=== PATIENT | female | born 1995 | race Caucasian/White ===

== ENCOUNTER 2017-03-08 21:01 | Emergency (ER) | payer OTHER ==
[~2017-03-08] VITALS: Ht 167.6 cm; Wt 98.0 kg
[2017-03-08 22:20] LABS: BASOPHIL % 1.1 % (0-2); PLATELET COUNT 378 x10^3mcL (130-400); RED CELL DISTRIBUTION WIDTH 13.3 % (11.5-14.5)
[2017-03-08 22:35] LABS: CALCIUM 9.7 mg/dL (8.5-10.1); CHLORIDE SERUM 103 mmol/L (98-107); CREATININE SERUM 0.8 mg/dL (0.6-1.0); GFR1 > 60 mL/min; GLUCOSE SERUM 108 mg/dL (74-106); POTASSIUM SERUM 3.7 mmol/L (3.5-5.1); SODIUM SERUM 139 mmol/L (136-145)
[2017-03-08 22:40] LABS: ALBUMIN 3.7 g/dL (3.4-5.0); ALKALINE PHOSPHATASE 80 U/L (46-116); ALT/SGPT 140 U/L (14-59); AST/SGOT 87 U/L (15-37); BILIRUBIN TOTAL 0.37 mg/dL (0.20-1.00)
[2017-03-09 00:02] VITALS: BP 115/65
== END 2017-03-09 00:02 | disposition home or self-care (01) ==
LOC: ED 21:01
PROVIDERS: Emergency Medicine
DX: J40 Bronchitis, not specified as acute or chronic (principal); J06.9 Acute upper respiratory infection, unspecified
CPT/HCPCS: 36600; 83880; 85378; J1100; J1885

== ENCOUNTER 2017-03-12 20:40 | Emergency (ER) | payer OTHER ==
[2017-03-12 22:40] VITALS: BP 136/86
== END 2017-03-12 22:40 | disposition home or self-care (01) ==
LOC: ED 20:40
DX: R06.02 Shortness of breath (principal)
CPT/HCPCS: 87804

== ENCOUNTER 2017-10-04 17:50 | Emergency (ER) | payer OTHER ==
[~2017-10-04] VITALS: Ht 167.6 cm; Wt 111.6 kg
[2017-10-04 18:03] VITALS: Ht 167.6 cm; Wt 111.6 kg
[2017-10-04 18:36] LABS: BASOPHIL % 0.3 % (0-2); PLATELET COUNT 384 x10^3mcL (130-400); RED CELL DISTRIBUTION WIDTH 13.3 % (11.5-14.5)
[2017-10-04 18:39] LABS: CALCIUM 9.7 mg/dL (8.5-10.1); CARBON DIOXIDE 30.6 mmol/L (21-32); CHLORIDE SERUM 105 mmol/L (98-107); CREATININE SERUM 0.8 mg/dL (0.6-1.0); GFR1 > 60 mL/min; GLUCOSE SERUM 104 mg/dL (74-106); POTASSIUM SERUM 3.7 mmol/L (3.5-5.1); SODIUM SERUM 145 mmol/L (136-145)
[2017-10-04 19:25] VITALS: BP 132/82
== END 2017-10-04 19:25 | disposition home or self-care (01) ==
LOC: ED 17:50
PROVIDERS: Emergency Medicine
DX: R07.89 Other chest pain (principal)
CPT/HCPCS: 36415; 85378; Q0092

== ENCOUNTER 2018-03-05 01:26 | Emergency (ER) | payer OTHER ==
[~2018-03-05] VITALS: Ht 167.6 cm; Wt 107.5 kg
[2018-03-05 01:32] VITALS: Ht 167.6 cm; Wt 107.5 kg
[2018-03-05 03:01] LABS: BASOPHIL % 0.5 % (0-2); PLATELET COUNT 380 x10^3mcL (130-400); RED CELL DISTRIBUTION WIDTH 12.9 % (11.5-14.5)
[2018-03-05 03:11] LABS: CARBON DIOXIDE 30.9 mmol/L (21-32); CHLORIDE SERUM 105 mmol/L (98-107); CREATININE SERUM 0.8 mg/dL (0.6-1.0); GFR1 > 60 mL/min; GLUCOSE SERUM 105 mg/dL (74-106); POTASSIUM SERUM 4.1 mmol/L (3.5-5.1); SODIUM SERUM 141 mmol/L (136-145)
[2018-03-05 03:14] LABS: ALBUMIN 3.8 g/dL (3.4-5.0); ALKALINE PHOSPHATASE 82 U/L (46-116); ALT/SGPT 72 U/L (14-59); AST/SGOT 29 U/L (15-37); BILIRUBIN TOTAL 0.34 mg/dL (0.20-1.00); LIPASE 117 IU/L (73-393)
[2018-03-05 03:16] LABS: TOTAL PROTEIN, SERUM 8.8 g/dL (6.4-8.2)
[2018-03-05 05:20] VITALS: BP 138/79
== END 2018-03-05 05:20 | disposition home or self-care (01) ==
LOC: ED 01:26
PROVIDERS: Emergency Medicine
DX: K80.20 Calculus of gallbladder without cholecystitis without obstruction (principal)
CPT/HCPCS: 36415; Q0092

== ENCOUNTER 2018-03-27 18:51 | Emergency (ER) | payer OTHER ==
[~2018-03-27] VITALS: Ht 167.6 cm; Wt 102.1 kg
[2018-03-27 18:55] VITALS: Ht 167.6 cm; Wt 102.1 kg
[2018-03-27 19:50] LABS: BASOPHIL % 0.2 % (0-2); PLATELET COUNT 348 x10^3mcL (130-400); RED CELL DISTRIBUTION WIDTH 13.2 % (11.5-14.5)
[2018-03-27 19:56] LABS: CALCIUM 9.2 mg/dL (8.5-10.1); CARBON DIOXIDE 30.5 mmol/L (21-32); CHLORIDE SERUM 104 mmol/L (98-107); CREATININE SERUM 0.7 mg/dL (0.6-1.0); GFR1 > 60 mL/min; GLUCOSE SERUM 99 mg/dL (74-106); POTASSIUM SERUM 3.5 mmol/L (3.5-5.1); SODIUM SERUM 139 mmol/L (136-145)
[2018-03-27 20:05] LABS: ALKALINE PHOSPHATASE 93 U/L (46-116); ALT/SGPT 96 U/L (14-59); AST/SGOT 52 U/L (15-37); BILIRUBIN TOTAL 0.52 mg/dL (0.20-1.00); LIPASE 117 IU/L (73-393)
[2018-03-27 20:08] LABS: TOTAL PROTEIN, SERUM 8.5 g/dL (6.4-8.2)
[2018-03-27 20:42] VITALS: BP 119/67
== END 2018-03-27 20:42 | disposition home or self-care (01) ==
LOC: ED 18:51
PROVIDERS: Emergency Medicine
DX: K80.20 Calculus of gallbladder without cholecystitis without obstruction (principal)
CPT/HCPCS: 36415

== ENCOUNTER 2019-10-25 17:08 | Emergency (ER) | payer OTHER, SELFPAY ==
[~2019-10-25] VITALS: Ht 167.6 cm; Wt 77.1 kg
[2019-10-25 19:58] VITALS: Ht 167.6 cm; Wt 77.1 kg
[2019-10-25 22:54] VITALS: BP 125/76
== END 2019-10-25 22:54 | disposition home or self-care (01) ==
LOC: ED 17:08
DX: R06.02 Shortness of breath (principal); R05 Cough; Z20.828 Contact with and (suspected) exposure to other viral communicable diseases
CPT/HCPCS: U0003-CS